=== PATIENT | male | born 1965 | race African-American/Black ===

== ENCOUNTER 2018-12-09 15:28 | Inpatient (IN) | payer OTHER ==
[2018-12-09 18:25] VITALS: BMI 29.2
--- NOTE | 2018-12-09 19:32 | HP ---
COWS - Scale Resting Pulse: 1= [place] 81-100 Sweatin= Chills/Flushing Restless Observation: 1= Difficult to Sit Still Pupil Size: 1= Pupils >than Normal Bone or Joint Aches: 1= Mild Discomfort Runny Nose/ Eye Tearin= Nasal Congestion GI Upset > 30mins: 1= Stomach Cramp Tremor Observation: 1= Tremor [place], Not Seen Yawning Observation: 1= 1-2x During Session Anxiety or Irritability: 1=Feels Anxious/Irritable Goose Flesh Skin: 3=Piloerection COWS Score: 13 CIWA Score - Admission Criteria [facility] Guidelines: Admission for Medically Managed Detox: Requires at least one of the followin. CIWA greater than 12 2. Seizures within the past 24 hours 3. Delirium tremens within the past 24 hours 4. Hallucinations within the past 24 hours 5. Acute intervention needed for co occurring medical disorder 6. Acute intervention needed for co occurring psychiatric disorder 7. Severe withdrawal that cannot be handled at a lower level of care (continued vomiting, continued diarrhea, abnormal vital signs) requiring intravenous medication and/or fluids 8. Admission ROS [facility] Chief Complaint: heroin detox 53 yo with no medical problems, on no meds, sent here by [facility] after he tested positive for heroin in urine. States he uses heroin every day- only a few bags and has withdrawal Sx if he stops. Pt denies other drug use/alcohol use. Heroin- 1-2 bags/day, sniffing, no h/o OD Utox: opiates Istop- no meds Pt does not want to go into MAT methadone/suboxone for group home relapse prevention. Pt did not want nicotine patch/gum Allergies/Adverse Reactions: Allergies Allergy/AdvReac Type Severity Reaction Status Date / Time No Known Drug Allergies Allergy Verified 09/10/15 18:31 shellfish derived Allergy Swelling Verified 12/09/18 18:21 SHELL FISH Allergy Swelling Uncoded 12/09/18 18:21 - Ebola screening Have you traveled outside of the country in the last 21 days: No Have you had contact with anyone from an Ebola affected area: No Patient History - Patient Medical History Hx Asthma: No Hx Chronic Obstructive Pulmonary Disease (COPD): No Hx Cardiac Disorders: No Hx Hypertension: No Hx Seizures: No Hx Diabetes: No Hx Gastrointestinal Disorders: No Hx Genitourinary Disorders: No Hx Sexually Transmitted Disorders: No Hx Renal Disease (ESRD): No Hx Human Immunodeficiency Virus (HIV): No Hx Hepatitis C: No Hx Depression: Yes (in treatment center) Hx Suicide Attempt: No Hx Schizophrenia: No - Patient Surgical History Past Surgical History: No Hx Neurologic Surgery: No Hx Cataract Extraction: No Hx Cardiac Surgery: No Hx Lung Surgery: No Hx Breast Surgery: No Hx Breast Biopsy: No Hx Abdominal Surgery: No Hx Appendectomy: No Hx Cholecystectomy: No Hx Genitourinary Surgery: No Hx Section: No Hx Orthopedic Surgery: No Anesthesia Reaction: No - PPD History Previous Implant?: Yes Documented Results: Negative w/o proof Date: 09/12/15 PPD to be Administered?: Yes - Smoking Cessation Smoking history: Current every day smoker Have you smoked in the past 12 months: Yes Aproximately how many cigarettes per day: 10 Hx Chewing Tobacco Use: No Initiated information on smoking cessation: Yes 'Breaking Loose' booklet given: 12/09/18 - Substance & Tx. History Hx Alcohol Use: No Hx Substance Use: Yes Substance Use Type: Heroin Hx Substance Use Treatment: Yes - Substances abused Heroin Substance route: Inhalation Frequency: Daily Amount used: 1-2 bags Age of first use: 46 Date of last use: 12/09/18 Family Disease History - Family Disease History Family Disease History: Other: Mother (ETOH DEPENDENT AND ) Admission Physical Exam BHS - Vital Signs Vital Signs: Vital Signs - 24 hr 12/09/18 18:10 Temperature 97.6 F Pulse Rate 58 L Respiratory 18 Rate Blood Pressure 135/88 - Physical General Appearance: Yes: Within Normal Limits HEENTM: Yes: Within Normal Limits Respiratory: Yes: Within Normal Limits Neck: Yes: Within Normal Limits Cardiology: Yes: Within Normal Limits, Regular Rate, S1, S2, Murmur (systolic 2/ 6 murmur) Abdominal: Yes: Within Normal Limits, Normal Bowel Sounds Genitourinary: Yes: Within Normal Limits Back: Yes: Within Normal Limits Musculoskeletal: Yes: Within Normal Limits Extremities: Yes: Within Normal Limits Neurological: Yes: Within Normal Limits Integumentary: Yes: Within Normal Limits Lymphatic: Yes: Within Normal Limits - Diagnostic (1) Heroin dependence Current Visit: No Status: Chronic (2) Heart murmur Current Visit: Yes Status: Acute Breathalyzer - Breathalyzer Breathalyzer: 0 Urine Drug Screen - Test Device Lot number: [id number] Expiration date: 07/09/20 - Control Is test valid?: Yes - Results Drug screen NEGATIVE: No Urine drug screen results: MOP-Opiates Inpatient Rehab Admission - Rehab Decision to Admit Inpatient rehab admission?: No
[2018-12-09] MEDS ORDERED: ACETAMINOPHEN 325 MG TABLET (FP) PO PRN ×2 (19:33)
[2018-12-09] MEDS ORDERED: METHOCARBAMOL 500 MG TABLET PO PRN (19:33)
[2018-12-09] MEDS ORDERED: MENTHOL/PHENOL 1 EACH UD MM PRN (19:33)
[2018-12-09] MEDS ORDERED: IBUPROFEN 400 MG TABLET (FP) PO PRN (19:33)
[2018-12-09] MEDS ORDERED: BISMUTH SUBSALICYLATE 524 MG/30 ML UD PO PRN (19:33)
[2018-12-09] MEDS ORDERED: MAGNESIUM CITRATE 300 ML BOTTLE PO PRN (19:33)
[2018-12-09] MEDS ORDERED: MAGNESIUM HYDROX 2400MG/30ML ORAL SUSPENSION 30 ML CUP PO PRN (19:33)
[2018-12-09] MEDS ORDERED: MAG HYDROX/AL HYDROX/SIMETH 30 ML UNIT-DOSE CUP PO PRN (19:33)
[2018-12-09] MEDS ORDERED: hydrOXYzine PAMOATE 25 MG CAPSULE (FP) PO PRN (19:33)
[2018-12-09] MEDS ORDERED: cloNIDine HCL 0.1 MG TABLET PO PRN (19:36)
[2018-12-09] MEDS ORDERED: clonazePAM 0.5 MG TABLET PO PRN (19:36)
[2018-12-09] MEDS: THIAMINE HCL 100 MG TABLET (FP) PO SCH (22:09)
[2018-12-09] MEDS ORDERED: METHADONE HCL 10 MG TABLET (FOR DETOX USE ONLY) PO ONE (23:00)
[2018-12-10] MEDS ORDERED: METHADONE HCL 10 MG TABLET (FOR DETOX USE ONLY) PO ONE (10:00)
[2018-12-10 10:13] LABS: HEMATOCRIT 39.7 % (35.4-49); HEMOGLOBIN 13.3 GM/dL (11.7-16.9); MCH 28.4 pg (25.7-33.7); MCHC 33.5 g/dl (32.0-35.9); MEAN CELL VOLUME 84.8 fl (80-96); MEAN PLT VOLUME 8.7 fl (7.5-11.1); PLATELET COUNT 185 K/MM3 (134-434); RBC 4.69 M/mm3 (4.00-5.60); RDW 13.2 % (11.9-15.9); WHITE BLOOD COUNT 5.3 K/mm3 (4.0-10.0)
[2018-12-10 10:35] LABS: ALBUMIN 3.5 g/dl (3.4-5.0); ALK PHOS 61 U/L (45-117); ANION GAP 4 MMOL/L (8-16); BILIRUBIN,TOTAL 0.6 mg/dL (0.2-1); BLOOD UREA NITROGEN 9 mg/dL (7-18); CALCIUM 8.6 mg/dL (8.5-10.1); CHLORIDE 104 mmol/L (98-107); CO2 28 mmol/L (21-32); GLUCOSE,RANDOM 92 mg/dL (74-106); SGOT/AST 21 U/L (15-37); SGPT/ALT 20 U/L (13-61); SODIUM 136 mmol/L (136-145); TOT PROT 6.5 g/dl (6.4-8.2)
[2018-12-10] MEDS: PRENATAL VITAMINS W/ FOLIC ACID TABLET (FP) PO SCH (10:35)
--- NOTE | 2018-12-10 16:02 | PN ---
S CIWA - CIWA Score Nausea/Vomitin-Mild Nausea/No Vomiting Muscle Tremors: 1-None Visible, but [place] Anxiety: 1-Mildly Anxious Agitation: 1-Slight > Activity Paroxysmal Sweats: 1-Minimal Palms Moist Orientation: 0-Oriented Tacttile Disturbances: 0-None Auditory Disturbances: 0-None Visual Disturbances: 0-None Headache: 0-None Present CIWA-Ar Total Score: 5 BHS Progress Note (SOAP) Subjective: pt states doing well with alcohol detox protocol O: Vital Signs - 24 hr 12/09/18 12/09/18 12/10/18 18:10 21:47 00:49 Temperature 97.6 F 96.6 F L Pulse Rate 58 L 51 L Respiratory 18 18 18 Rate Blood Pressure 135/88 160/97 12/10/18 12/10/18 12/10/18 06:41 09:23 13:36 Temperature 97.9 F 96.8 F L 96.8 F L Pulse Rate 54 L 60 50 L Respiratory 18 20 18 Rate Blood Pressure 131/77 131/83 144/93 Laboratory Tests 12/10/18 12/10/18 12/10/18 07:00 07:00 07:00 WBC 5.3 RBC 4.69 Hgb 13.3 Hct 39.7 MCV 84.8 MCH 28.4 MCHC 33.5 RDW 13.2 Plt Count 185 MPV 8.7 Sodium 136 Potassium 4.0 Chloride 104 Carbon Dioxide 28 Anion Gap 4 L BUN 9 Creatinine 1.0 Creat Clearance w eGFR 78.78 Random Glucose 92 Calcium 8.6 Total Bilirubin 0.6 AST 21 ALT 20 Alkaline Phosphatase 61 Total Protein 6.5 Albumin 3.5 RPR Titer Nonreactive a/p: continue alcohol detox protocol, pt doing well.
[2018-12-10] MEDS: hydrOXYzine PAMOATE 25 MG CAPSULE (FP) PO PRN (22:19)
[2018-12-10] MEDS: THIAMINE HCL 100 MG TABLET (FP) PO SCH (22:19)
[2018-12-10] MEDS: MELATONIN 5 MG TABLETS PO PRN (22:19)
[2018-12-10] MEDS: NICOTINE POLACRILEX 2 MG GUM BUC PRN (23:15)
[2018-12-11] MEDS ORDERED: METHADONE HCL 10 MG TABLET (FOR DETOX USE ONLY) PO ONE (10:00)
[2018-12-11] MEDS: PRENATAL VITAMINS W/ FOLIC ACID TABLET (FP) PO SCH (10:12)
[2018-12-11] MEDS ORDERED: ONDANSETRON *ODT* 4 MG TABLET SL PRN (14:16)
--- NOTE | 2018-12-11 14:17 | PN ---
BHS CIWA - CIWA Score Nausea/Vomitin-Mild Nausea/No Vomiting Muscle Tremors: 3 Anxiety: 4-Mod. Anxious/Guarded Agitation: 3 Paroxysmal Sweats: 1-Minimal Palms Moist Orientation: 0-Oriented Tacttile Disturbances: 0-None Auditory Disturbances: 0-None Visual Disturbances: 0-None Headache: 0-None Present CIWA-Ar Total Score: 12 BHS Progress Note (SOAP) Subjective: PT C/O ANXIETY, NAUSEA AND VOMITING. Objective: 12/11/18 14:15 Vital Signs 12/11/18 12/11/18 12/11/18 06:18 06:30 09:28 Temperature 97.2 F L 98.9 F Pulse Rate 51 L 63 Respiratory 18 18 18 Rate Blood Pressure 130/91 121/78 12/11/18 13:22 Temperature 97.7 F Pulse Rate 50 L Respiratory 18 Rate Blood Pressure 137/87 Laboratory Tests 12/10/18 12/10/18 12/10/18 07:00 07:00 07:00 WBC 5.3 RBC 4.69 Hgb 13.3 Hct 39.7 MCV 84.8 MCH 28.4 MCHC 33.5 RDW 13.2 Plt Count 185 MPV 8.7 Sodium 136 Potassium 4.0 Chloride 104 Carbon Dioxide 28 Anion Gap 4 L BUN 9 Creatinine 1.0 Creat Clearance w eGFR 78.78 Random Glucose 92 Calcium 8.6 Total Bilirubin 0.6 AST 21 ALT 20 Alkaline Phosphatase 61 Total Protein 6.5 Albumin 3.5 RPR Titer Nonreactive Assessment: 12/11/18 14:15 WITHDRAWAL SX Plan: CONTINUE DETOX ZOFRAN ODT SL 8MG Q8H DIRECTED
[2018-12-11] MEDS: NICOTINE POLACRILEX 2 MG GUM BUC PRN ×2 (19:39→22:12)
[2018-12-11] MEDS: MELATONIN 5 MG TABLETS PO PRN (22:11)
[2018-12-11] MEDS: THIAMINE HCL 100 MG TABLET (FP) PO SCH (22:11)
[2018-12-11] MEDS: hydrOXYzine PAMOATE 25 MG CAPSULE (FP) PO PRN (22:11)
[2018-12-12] MEDS ORDERED: METHADONE HCL 10 MG TABLET (FOR DETOX USE ONLY) PO ONE (10:00)
[2018-12-12] MEDS: PRENATAL VITAMINS W/ FOLIC ACID TABLET (FP) PO SCH (10:25)
[2018-12-12] MEDS: NICOTINE POLACRILEX 2 MG GUM BUC PRN ×2 (10:26→17:29)
--- NOTE | 2018-12-12 14:41 | PN ---
BHS COWS - Scale Resting Pulse: 0= [place] 80 or Below Sweatin= Chills/Flushing Restless Observation: 1= Difficult to Sit Still Pupil Size: 0= Normal to Room Light Bone or Joint Aches: 1= Mild Discomfort Runny Nose/ Eye Tearin= Nasal Congestion GI Upset > 30mins: 0= None Tremor Observation of Outstretched Hands: 1= Tremor [place], Not Seen Yawning Observation: 1= 1-2x During Session Anxiety or Irritability: 1=Feels Anxious/Irritable Goose Flesh Skin: 0=Smooth Skin COWS Score: 7 BHS Progress Note (SOAP) Subjective: feeling better resting on bed low energy tolerate food and fluid well Objective: 12/12/18 14:43 Vital Signs Temperature 97.1 F L 12/12/18 13:29 Pulse Rate 54 L 12/12/18 13:29 Respiratory Rate 18 12/12/18 13:29 Blood Pressure 145/89 12/12/18 13:29 O2 Sat by Pulse Oximetry (%) Laboratory Last Values WBC 5.3 K/mm3 (4.0-10.0) 12/10/18 07:00 RBC 4.69 M/mm3 (4.00-5.60) 12/10/18 07:00 Hgb 13.3 GM/dL (11.7-16.9) 12/10/18 07:00 Hct 39.7 % (35.4-49) 12/10/18 07:00 MCV 84.8 fl (80-96) 12/10/18 07:00 MCH 28.4 pg (25.7-33.7) 12/10/18 07:00 MCHC 33.5 g/dl (32.0-35.9) 12/10/18 07:00 RDW 13.2 % (11.9-15.9) 12/10/18 07:00 Plt Count 185 K/MM3 (134-434) 12/10/18 07:00 MPV 8.7 fl (7.5-11.1) 12/10/18 07:00 Sodium 136 mmol/L (136-145) 12/10/18 07:00 Potassium 4.0 mmol/L (3.5-5.1) 12/10/18 07:00 Chloride 104 mmol/L (98-107) 12/10/18 07:00 Carbon Dioxide 28 mmol/L (21-32) 12/10/18 07:00 Anion Gap 4 MMOL/L (8-16) L 12/10/18 07:00 BUN 9 mg/dL (7-18) 12/10/18 07:00 Creatinine 1.0 mg/dL (0.55-1.3) 12/10/18 07:00 Creat Clearance w eGFR 78.78 (>60) 12/10/18 07:00 Random Glucose 92 mg/dL (74-106) 12/10/18 07:00 Calcium 8.6 mg/dL (8.5-10.1) 12/10/18 07:00 Total Bilirubin 0.6 mg/dL (0.2-1) 12/10/18 07:00 AST 21 U/L (15-37) 12/10/18 07:00 ALT 20 U/L (13-61) 12/10/18 07:00 Alkaline Phosphatase 61 U/L (45-117) 12/10/18 07:00 Total Protein 6.5 g/dl (6.4-8.2) 12/10/18 07:00 Albumin 3.5 g/dl (3.4-5.0) 12/10/18 07:00 RPR Titer Nonreactive (NONREACTIVE) 12/10/18 07:00 lab noted Assessment: 12/12/18 14:44 mild opiate withdrawal sx Plan: continue detox
[2018-12-12] MEDS: hydrOXYzine PAMOATE 25 MG CAPSULE (FP) PO PRN (21:49)
[2018-12-12] MEDS: MELATONIN 5 MG TABLETS PO PRN (21:49)
[2018-12-12] MEDS: THIAMINE HCL 100 MG TABLET (FP) PO SCH (21:49)
[2018-12-13] MEDS ORDERED: METHADONE HCL 5 MG TABLET (FOR DETOX USE ONLY) PO ONE (06:00)
[2018-12-13 09:20] VITALS: BP 149/92; PULSE 55; TEMP 97.1
--- NOTE | 2018-12-13 13:50 | DS ---
[facility] Detox Discharge Summary Admission Date: 12/09/18 Discharge Date: 12/13/18 - History Present History: Opioid Dependence Additional Comments: 53 years old male admitted on 12/09/18 for opiate withdrawal stabilization [facility] Pertinent Past History: bring in medication list and lab report to follow up appointment - Physical Exam Results Vital Signs: Vital Signs Temperature 97.1 F L 12/13/18 09:19 Pulse Rate 55 L 12/13/18 09:19 Respiratory Rate 18 12/13/18 09:19 Blood Pressure 149/92 12/13/18 09:19 O2 Sat by Pulse Oximetry (%) Pertinent Admission Physical Exam Findings: opiate withdrawal sx Laboratory Last Values WBC 5.3 K/mm3 (4.0-10.0) 12/10/18 07:00 RBC 4.69 M/mm3 (4.00-5.60) 12/10/18 07:00 Hgb 13.3 GM/dL (11.7-16.9) 12/10/18 07:00 Hct 39.7 % (35.4-49) 12/10/18 07:00 MCV 84.8 fl (80-96) 12/10/18 07:00 MCH 28.4 pg (25.7-33.7) 12/10/18 07:00 MCHC 33.5 g/dl (32.0-35.9) 12/10/18 07:00 RDW 13.2 % (11.9-15.9) 12/10/18 07:00 Plt Count 185 K/MM3 (134-434) 12/10/18 07:00 MPV 8.7 fl (7.5-11.1) 12/10/18 07:00 Sodium 136 mmol/L (136-145) 12/10/18 07:00 Potassium 4.0 mmol/L (3.5-5.1) 12/10/18 07:00 Chloride 104 mmol/L (98-107) 12/10/18 07:00 Carbon Dioxide 28 mmol/L (21-32) 12/10/18 07:00 Anion Gap 4 MMOL/L (8-16) L 12/10/18 07:00 BUN 9 mg/dL (7-18) 12/10/18 07:00 Creatinine 1.0 mg/dL (0.55-1.3) 12/10/18 07:00 Creat Clearance w eGFR 78.78 (>60) 12/10/18 07:00 Random Glucose 92 mg/dL (74-106) 12/10/18 07:00 Calcium 8.6 mg/dL (8.5-10.1) 12/10/18 07:00 Total Bilirubin 0.6 mg/dL (0.2-1) 12/10/18 07:00 AST 21 U/L (15-37) 12/10/18 07:00 ALT 20 U/L (13-61) 12/10/18 07:00 Alkaline Phosphatase 61 U/L (45-117) 12/10/18 07:00 Total Protein 6.5 g/dl (6.4-8.2) 12/10/18 07:00 Albumin 3.5 g/dl (3.4-5.0) 12/10/18 07:00 RPR Titer Nonreactive (NONREACTIVE) 12/10/18 07:00 lab noted - Treatment Hospital Course: Detox Protocol Followed, Detoxed Safely, Responded well, Discharged Condition Good, Rehab Referral Accepted Patient has Accepted a Rehab Referral to: [facility] - Medication Discharge Medications: Ambulatory Orders Naloxone HCl [Narcan] 4 mg NS ASDIR PRN 12/13/18 - Diagnosis (1) Uncomplicated opioid dependence Status: Acute - AMA Did Patient Leave Against Medical Advice: No
== END 2018-12-13 09:25 | disposition home or self-care (01) | DRG 773 ==
LOC: EDBD 15:28 → YASAS 15:28 → Y3N 19:53
PROVIDERS: ADMIT Surgery; ATTEND Surgery
PROC: HZ2ZZZZ Detoxification Services for Substance Abuse Treatment (ICD-10-PCS; principal; 2018-12-09)
DX: F11.23 Opioid dependence with withdrawal (principal); F32.9 Major depressive disorder, single episode, unspecified; R01.1 Cardiac murmur, unspecified; Z91.013 Allergy to seafood
CPT/HCPCS: 36415; 80053; 85027; 86593